=== PATIENT | male | born 1955 | race Caucasian/White ===

== ENCOUNTER 2025-06-04 09:37 | Outpatient (CLI) | payer MEDICARE, MEDICAID ==
--- NOTE | 2025-06-04 13:05 | RADIOLOGY REPORT ---
PROCEDURE: MR MRI LUMBAR SPINE INDICATION: SPINAL STENOSIS, LUMBAR REGION WITHOUT NEUROGENIC STEFF Exam Date: 06/04/2025 10:06 AM COMPARISON: None TECHNIQUE: MRI lumbar spine without intravenous contrast. FINDINGS: Multilevel disc degeneration. Alignment: Grade 1 retrolisthesis of T12 on L1. Grade 1 retrolisthesis of L1 on L2. Grade 1 retrolisthesis of L3 on L4. Grade 2 anterolisthesis of L4 on L5. Vertebrae: Vertebral body height is well maintained without evidence of a recent compression fracture. T12 vertebral body hemangioma. Conus: Conus medullaris terminates at the T12-L1 level. T12-L1: Grade 1 retrolisthesis of T12 on L1 by 3.3 mm. Disc desiccation and disc bulge. No spinal canal or neural foraminal stenosis. Facet arthrosis. L1-2: Grade 1 retrolisthesis of L1 on L2 by 2.2 mm. Disc desiccation and disc bulge. No spinal canal or neural foraminal stenosis. Facet arthrosis. L2-3: Disc desiccation and disc bulge. No spinal canal or neural foraminal stenosis. Facet arthrosis. L3-4: Grade 1 retrolisthesis of L3 on L4 by 2.2 mm. Disc desiccation and disc bulge. Mild spinal canal stenosis. Bilateral subarticular zone stenosis with right descending L4 nerve root compression from bulge. Moderate bilateral foraminal stenosis. Facet arthrosis. L4-5: Grade 2 anterolisthesis of L4 on L5 by 3.3 mm. Disc desiccation and disc bulge. Mild disc height loss. Severe spinal canal stenosis. Bilateral subarticular zone stenosis with bilateral descending L5 nerve root compression. Severe bilateral foraminal stenosis with potential bilateral exiting L4 nerve root compression. Facet arthrosis. L5-S1: Disc bulge. Bilateral subarticular zone stenosis with left descending S1 nerve root compression. Mild right and severe left foraminal stenosis with potential left exiting L5 nerve root compression from bulge. Facet arthrosis. IMPRESSION: Multilevel disc degeneration. Multilevel spinal canal stenosis, most pronounced and severe at L4-L5. Multilevel foraminal stenosis, most pronounced and severe at L4-L5 with potential bilateral exiting L4 nerve root compression.
== END 2025-06-04 23:59 | disposition home or self-care (01) ==
LOC: MRI02 09:37
PROVIDERS: ATTEND Nurse Practitioner
DX: M51.17 Intervertebral disc disorders with radiculopathy, lumbosacral region (principal); M48.061 Spinal stenosis, lumbar region without neurogenic claudication; M48.07 Spinal stenosis, lumbosacral region; M47.815 Spondylosis without myelopathy or radiculopathy, thoracolumbar region
CPT/HCPCS: 72148